=== PATIENT | female | born 1980 | race Caucasian/White ===

== ENCOUNTER 2016-09-25 09:35 | Outpatient (CLI) | payer MEDICARE, OTHER ==
[2015-07-04 19:05] VITALS: BP 104/60
[2016-09-25 09:59] LABS: BASOPHILS % 0.6 (0.0-1.5); EOSINOPHILS % 4.2 % (0.0-6.8); LYMPHOCYTES # 1.9 # k/uL (0.6-4.0); MEAN CORPUSCULAR HEMOGLOBIN 32.9 pg (28.0-34.0); MONOCYTES # 0.5 # k/uL (0.0-0.9); MONOCYTES % 5.5 % (0.0-11.0); NEUTROPHILS # 5.8 # k/uL (1.4-7.7)
[2016-09-25 10:33] LABS: eGFR (African) > 60; eGFR (Non-African) > 60
== END 2016-09-25 09:36 ==
LOC: LAB 09:35
PROVIDERS: ATTEND Family Medicine
DX: F32.9 Major depressive disorder, single episode, unspecified (principal); D64.9 Anemia, unspecified
CPT/HCPCS: 36415; 80053; 82607; 85025

== ENCOUNTER 2016-12-29 22:38 | Emergency (ER) | payer OTHER ==
--- NOTE | 2016-12-29 23:13 | ED Physician Documentation ---
General Adult - HISTORIAN Historian: patient - HPI Stated Complaint: neck/back pain Chief Complaint: General Adult Additional Information: Wants to know why she has back pain every day for years. Otherwise she won't be able to carry her dog up and down the stairs (dog is having back pain). Back hurts every day. Began to hurt today especially after she carried dog up and down stairs. Called EMS to come to ambulance. Per EMS, she carried dog and walked down stairs without difficulty. Moved from ambulance stretcher in ER w/o difficulty. Took tylenol at about 2000. When tylenol 3-4x/day suggested, said she already does that. Back pain said to have begun years ago after she tried to hang herself. Pain starts at base of skull and extends the length of her spine. at home when EMS arrived. Pt wanted to accompany her to ER so she would not have information hidden from her like instruments left in her abdomen, and to collect her medical records. Has never discussed back pain with her primary provider, Dr. Cameron, she says. - ROS CONST: no problems GI/: denies: problems urinating NEURO/PSYCH: denies: tingling, numbness - PAST HX Past History: other (chronic back pain, suicide attempt by hanging years ago) Surgeries/Procedures: hysterectomy (told EMS she believes instruments left inside) Allergies/Adverse Reactions: Allergies Allergy/AdvReac Type Severity Reaction Status Date / Time NSAIDS (Non-Steroidal Allergy Abdominal Verified 12/29/16 22:49 Anti-Inflamma Pain Sulfa (Sulfonamide Allergy Verified 07/04/15 17:24 Antibiotics) [Sulfa(Sulfonamide Antibiotics)] clonazepam [From Klonopin] AdvReac Headache Verified 12/29/16 22:49 gabapentin [From Neurontin] AdvReac Headache Verified 12/29/16 22:49 meloxicam [From Mobic] AdvReac Abdominal Verified 12/29/16 22:49 Pain - SOCIAL HX Smoking History: cigarettes - FAMILY HX Family History: No - VITAL SIGNS Vital Signs: Vital Signs Temp Pulse Resp BP Pulse Ox 92 H 16 113/79 92 12/29/16 22:45 12/29/16 22:45 12/29/16 22:45 12/29/16 22:45 - REVIEWED ASSESSMENTS Nursing Assessment Reviewed: Yes Vitals Reviewed: Yes General Adult Physical Exam - PHYSICAL EXAM GENERAL APPEARANCE: no distress EENT: eye inspection normal, ENT inspection normal NECK: normal inspection, supple RESPIRATORY: no resp distress, chest non-tender, breath sounds normal CVS: reg rate & rhythm, heart sounds normal ABDOMEN: normal bowel sounds RECTAL: deferred BACK: normal inspection, no CVA tenderness SKIN: warm/dry, normal color EXTREMITIES: no evidence of injury, no edema NEURO: CN's nml as tested, motor nml, sensation nml, other (reflexes 2+ throughout. Can plantar and dorsiflex toes against resistance. ) Discharge Clincal Impression: Chronic back pain Qualifiers: Back pain location: back pain in unspecified location Back pain laterality: bilateral Qualified Code(s): M54.9 - Dorsalgia, unspecified; G89.29 - Other chronic pain Additional Instructions: You can apply ice or gentle heat to the sore areas of your back. Tylenol 3-4 times a day if needed for discomfort. Discuss your back pain with Dr. Cameron. Condition: Fair Disposition: 01 HOME, SELF-CARE Decision to Admit: NO Decision Time: 13:18
[2016-12-29 23:56] VITALS: BP 104/77
== END 2016-12-29 23:30 | disposition home or self-care (01) ==
LOC: ED 22:38
DX: M54.9 Dorsalgia, unspecified (principal); G89.29 Other chronic pain

== ENCOUNTER 2017-12-24 13:35 | Outpatient (CLI) | payer OTHER ==
--- NOTE | 2017-12-24 17:52 | Diagnostic Imaging Report ---
RAO OSULLIVAN [facility] [id number] [facility].[address] [id number] Report Submission Date: Dec 24, 2017 2:06:31 PM CDT Patient Study Name: LOUIS ORANTES Date: Dec 24, 2017 1:41:16 PM CDT Modality Type: DX Gender: F Description: SPINE : 78 Institution: [facility] Physician: RAO OSULLIVAN Examination: Cervical spine History: PAIN FROM NECK INJURY X 5 YEARS AGO (Hx) Comparison exams: None available Findings: 3 views of the cervical spine demonstrate normal height and alignment. No anterior compression. No abnormal listhesis. Lower cervical degenerative changes. No odontoid abnormality. No prevertebral abnormality Impression: No acute appearing osseous abnormality Electronically signed on Dec 24, 2017 2:06:31 PM CDT by: Tadeo MARAVILLA
== END 2017-12-24 13:36 ==
LOC: RAD 13:35
PROVIDERS: ATTEND Family Medicine
DX: M54.2 Cervicalgia (principal)
CPT/HCPCS: 72040